=== PATIENT | female | born 1970 | race African-American/Black ===

== ENCOUNTER 2017-08-17 10:32 | Emergency (ER) | payer OTHER ==
[2017-08-17] MEDS ORDERED: KETOROLAC TROMETHAMINE INJ/PF 30 MG/1 ML SDV IM ONE (12:10)
--- NOTE | 2017-08-17 12:10 | ER Document Report ---
HPI - HPI Pain Level: 3 Notes: Patient is a 47-year-old female who presents ED complaining of left lateral hip pain 2 days. Patient states that she started to jog and run a couple days ago. Patient states that she has had pain and soreness in the left lateral hip that will occasionally radiate down the left lateral thigh. Patient has not noticed any swelling or bruising. She denies any injury or trauma. Ambulation makes the pain worse as well as weightbearing. She has been trying some over- the-counter meds with minimal relief. Patient requesting work note. Denies any headache, fever, URI, sore throat, chest pain, palpitations, syncope, cough , shortness of breath, wheeze, dyspnea, abdominal pain, nausea/vomiting/diarrhea , urinary retention, dysuria, hematuria, back pain, loss of control of bowel or bladder, numbness/tingling, saddle anesthesia, muscle paralysis/weakness, or rash. Patient denies any IV drug use or procedures/injections into her back. Denies any significant past medical history. - ROS Notes: REVIEW OF SYSTEMS: CONSTITUTIONAL : Denies fever, chills, or sweats. Denies recent illness. EENT: Denies eye, ear, throat, or mouth pain or symptoms. Denies nasal or sinus congestion or discharge. Denies throat, tongue, or mouth swelling or difficulty swallowing. CARDIOVASCULAR: Denies chest pain. Denies palpitations or racing or irregular heart beat. Denies ankle edema. RESPIRATORY: Denies cough, cold, or chest congestion. Denies shortness of breath, difficulty breathing, or wheezing. GASTROINTESTINAL: Denies abdominal pain or distention. Denies nausea, vomiting , or diarrhea. Denies blood in vomitus, stools, or per rectum. Denies black, tarry stools. Denies constipation. GENITOURINARY: Denies difficulty urinating, painful urination, burning, frequency, blood in urine, or discharge. MUSCULOSKELETAL: see hpi SKIN: Denies rash, lesions or sores. NEUROLOGICAL: Denies confusion or altered mental status. Denies passing out or loss of consciousness. Denies dizziness or lightheadedness. Denies headache. Denies weakness or paralysis or loss of use of either side. Denies problems with gait or speech. Denies sensory loss, numbness, or tingling. ALL OTHER SYSTEMS REVIEWED AND NEGATIVE. Dictation was performed using [employer] voice recognition software - CARDIOVASCULAR Cardiovascular: DENIES: Chest pain - REPRODUCTIVE Reproductive: DENIES: : - DERM Skin Color: Normal Past Medical History - Social History Smoking Status: Never Smoker Chew tobacco use (# tins/day): No Frequency of alcohol use: Rare Drug Abuse: None Family History: Reviewed & Not Pertinent Patient has suicidal ideation: No Renal/ Medical History: Denies: Hx Peritoneal Dialysis Past Surgical History: Reports: Hx Section Vertical Provider Document - CONSTITUTIONAL Agree With Documented VS: Yes Notes: PHYSICAL EXAMINATION: GENERAL: Well-appearing, well-nourished and in no acute distress. LUNGS: Breath sounds clear to auscultation bilaterally and equal. No wheezes rales or rhonchi. HEART: Regular rate and rhythm without murmurs, rubs, gallops. ABDOMEN: Soft, nontender, nondistended abdomen. No guarding, no rebound. No masses appreciated. Normal bowel sounds present. No CVA tenderness bilaterally. No pulsatile mass Musculoskeletal: Lt LE: FROM to passive/active. Strength 5+/5. N/V intact distal. + tenderness to the troch bursa. IT band also slightly tighter than the right leg. No bony tenderness. Back: FROM, strength 5+/5. No bony tenderness or step-offs. No erythema, ecchymosis, abrasion, or signs of trauma noted. Extremities: No cyanosis, clubbing, or edema b/l. Peripheral pulses 2+. Capillary refill less than 3 seconds. NEUROLOGICAL: Normal speech, ataxic gait. Normal sensory, motor exams PSYCH: Normal mood, normal affect. SKIN: Warm, Dry, normal turgor, no rashes or lesions noted. - INFECTION CONTROL TRAVEL OUTSIDE OF THE [place] IN LAST 30 DAYS: No - RESPIRATORY O2 Sat by Pulse Oximetry: 98 Course - Re-evaluation Re-evalutation: 08/17/17 12:09 Patient is an afebrile, well-hydrated, 47-year-old female who presents to the ED with left hip pain, suspect trochanteric bursitis based on H&P today. Vitals are stable. PE otherwise unremarkable for any focal neurological deficits otherwise. No imaging warranted at this time based on H&P. Low suspicion for any meningitis, fracture, expanding/ruptured AAA, cauda equina syndrome, epidural mass lesion/abscess, herniated disc causing severe spinal stenosis, or other systemic infection at this time. Patient is aware that her condition can change from initial presentation and that she needs monitor symptoms closely for any acute changes. I will send her home with a prescription for naproxen and Voltaren gel. Toradol 30 mg given IM today. Advised patient to call orthopedics to schedule an appointment for further evaluation and management. Recheck with your PCM this week as well. Return to the ED with any worsening/concerning symptoms otherwise as reviewed in discharge. Patient is in agreement. - Vital Signs Vital signs: Temp Pulse Resp BP Pulse Ox 97.9 F 71 16 120/78 98 08/17/17 11:00 08/17/17 11:00 08/17/17 11:00 08/17/17 11:00 08/17/17 11:00 Discharge - Discharge Clinical Impression: Trochanteric bursitis, left hip Condition: Stable Disposition: HOME, SELF-CARE Instructions: Bursitis ([facility]), Ice Massage ([facility]), Ice Packs ([facility]), Warm Packs ( [facility]) Additional Instructions: Rest, Ice, Compression, Elevation Tylenol/ibuprofen as needed Light stretches daily Strength exercises as able Moist heat and massage may help F/u with your PCP in 2-3 days for a recheck Consider consult(s) with Orthopedics/physical therapy for ongoing/worsening symptoms Return to the ED with any worsening symptoms and/or development of fever, headache, chest pain, palpitations, syncope, shortness of breath, trouble breathing, abdominal pain, n/v/d, blood in stool/urine, loss of control of bowel /bladder, urinary retention, muscle weakness/paralysis, saddle anesthesia, numbness/tingling, redness, swelling, abscess, or other worsening symptoms that are concerning to you. Prescriptions: Diclofenac Sodium [Voltaren] 4 gm TP QID PRN #100 gel..gm. PRN Reason: Naproxen 500 mg PO BID PRN #30 tablet PRN Reason: Forms: Return to Work Referrals: [facility] [Provider Group] - Follow up as needed [facility] [Provider Group] - Follow up as needed [facility] [Provider Group] - Follow up in 3-5 days
[2017-08-17] MEDS ORDERED: DEXAMETHASONE SOD PHOS INJ 10 MG/1 ML VIAL IM ONE (12:33)
[2017-08-17 12:51] VITALS: BP 154/74
== END 2017-08-17 12:51 | disposition home or self-care (01) ==
LOC: ER 10:32
DX: M70.62 Trochanteric bursitis, left hip (principal); M25.552 Pain in left hip
CPT/HCPCS: 99283; 96372; J1885; J1100

== ENCOUNTER → 2017-08-20 | Outpatient (CLI) | payer OTHER ==
--- NOTE | 2017-08-20 11:44 | RADIOLOGY REPORT (SQ) ---
EXAM DESCRIPTION: HIP LEFT AP/LATERAL COMPLETED DATE/TIME: 08/20/2017 11:05 am REASON FOR STUDY: PAIN IN LEFT HIP M25.562 PAIN IN LEFT KNEE COMPARISON: None. NUMBER OF VIEWS: Two views. TECHNIQUE: AP pelvis and additional frog-leg view of the left hip. LIMITATIONS: None. FINDINGS: MINERALIZATION: Normal. LEFT HIP: No fracture or dislocation. No worrisome bone lesions. RIGHT HIP: No fracture or dislocation. No worrisome bone lesions. PUBIS AND ISCHIUM: No fracture. PELVIS: No fracture. SACRUM: No fracture or dislocation. No worrisome bone lesions. LOWER LUMBAR SPINE: No fracture or dislocation. No worrisome bone lesions. No significant disc disea se. SOFT TISSUES: No findings. OTHER: No other significant finding. IMPRESSION: NEGATIVE STUDY OF THE LEFT HIP AND PELVIS. NO RADIOGRAPHIC EVIDENCE OF ACUTE INJURY. TECHNICAL DOCUMENTATION: JOB ID: [id number] [employer]- All Rights Reserved
== END ==
LOC: OD 10:46
PROVIDERS: ATTEND Physician Assistant
DX: M25.562 Pain in left knee (principal)